=== PATIENT | female | born 1970 | race Two or more races ===

== ENCOUNTER 2017-12-06 09:49 | Outpatient (CLI) | payer OTHER ==
[~2017-12-06 09:49] MED LIST: FA-80.8 MG PO; FEMARA2.5 MG PO
== END 2017-12-06 10:46 | disposition home or self-care (01) ==
LOC: NST 09:49
DX: Z34.92 Encounter for supervision of normal pregnancy, unspecified, second trimester (principal)

== ENCOUNTER 2018-01-18 07:25 | Outpatient (CLI) | payer OTHER | END 2018-01-18 08:21 | disposition home or self-care (01) | LOC: NST 07:25 | DX: Z34.83 Encounter for supervision of other normal pregnancy, third trimester (principal) ==

== ENCOUNTER 2018-01-21 07:48 | Outpatient (CLI) | payer OTHER ==
[2018-01-21] MEDS ORDERED: SYNTHROID50 MCG (10:53)
[2018-01-21] MEDS ORDERED: PRENATAL + DHA1 EAC1 (10:54)
== END 2018-01-21 08:24 | disposition home or self-care (01) ==
LOC: NST 07:48
DX: Z34.83 Encounter for supervision of other normal pregnancy, third trimester (principal)

== ENCOUNTER 2018-01-24 09:00 | Inpatient (IN) | payer OTHER ==
[~2018-01-24] VITALS: Ht 170.2 cm; Wt 2.7 kg
[~2018-01-24 09:00] MED LIST changes: +PRENATAL + DHA1 EAC1; +SYNTHROID50 MCG
== END 2018-01-27 13:59 | DRG 766 ==
LOC: OB/GYN 09:00 → LDR 10:20 → OB/GYN 10:46
PROVIDERS: Obstetrics & Gynecology Maternal & Fetal Medicine
PROC: 4A1HXCZ Monitoring of Products of Conception, Cardiac Rate, External Approach (ICD-10-PCS; 2018-01-24)
PROC: 4A033R1 Measurement of Arterial Saturation, Peripheral, Percutaneous Approach (ICD-10-PCS; 2018-01-24)
PROC: 10D00Z1 Extraction of Products of Conception, Low, Open Approach (ICD-10-PCS; principal; 2018-01-24 09:00)
DX: O32.1XX0 Maternal care for breech presentation, not applicable or unspecified (principal); O32.2XX0 Maternal care for transverse and oblique lie, not applicable or unspecified; Z3A.39 39 weeks gestation of pregnancy; Z37.0 Single live birth

== ENCOUNTER 2018-07-25 11:05 | Outpatient (CLI) | payer OTHER | END 2018-07-25 11:13 | disposition home or self-care (01) | LOC: SONOGRAMA 11:05 | DX: E04.1 Nontoxic single thyroid nodule (principal) ==

== ENCOUNTER 2021-10-06 10:51 | Outpatient (CLI) | payer OTHER | END 2021-10-06 11:05 | disposition home or self-care (01) | LOC: RAD 10:51 | PROVIDERS: ATTEND Physical Medicine & Rehabilitation | DX: M41.85 Other forms of scoliosis, thoracolumbar region (principal); M16.12 Unilateral primary osteoarthritis, left hip; M17.12 Unilateral primary osteoarthritis, left knee; S80.02XA Contusion of left knee, initial encounter; M54.6 Pain in thoracic spine ==

== ENCOUNTER 2021-10-26 08:00 | Outpatient (CLI) | payer OTHER | END 2021-10-26 08:20 | disposition home or self-care (01) | LOC: TOM 08:00 | PROVIDERS: ATTEND Internal Medicine | DX: C73 Malignant neoplasm of thyroid gland (principal); R10.32 Left lower quadrant pain ==

== ENCOUNTER 2022-04-14 11:33 | Outpatient (CLI) | payer OTHER | END 2022-04-14 11:49 | disposition home or self-care (01) | LOC: RAD 11:33 | DX: R05.9 Cough, unspecified (principal); U07.1 COVID-19; J09.X9 Influenza due to identified novel influenza A virus with other manifestations ==

== ENCOUNTER 2023-03-19 10:21 | Outpatient (CLI) | payer OTHER | END 2023-03-19 10:40 | disposition home or self-care (01) | LOC: MRI 10:21 | PROVIDERS: ATTEND Physical Medicine & Rehabilitation | DX: M25.552 Pain in left hip (principal) | CPT/HCPCS: 73721 ==